=== PATIENT | male | born 1960 | race Hispanic/Latino ===

== ENCOUNTER → 2017-10-22 | Outpatient (CLI) | payer OTHER ==
[~2017-10-22] MED LIST: ASPIRIN EC81 MG PO; BUPROPION XL300 MG PO; BUSPIRONE HCL30 MG PO; CYCLOBENZAPRINE10 MG PO; FENOFIBRATE145 MG PO; GABAPENTIN300 MG PO; LIPITOR10 MG PO; MELOXICAM7.5 MG PO; PERCOCET 7.5-31 EACH PO; TEMAZEPAM15 MG PO
--- NOTE | 2017-10-22 12:48 | Diagnostic Imaging Report ---
History: Headaches Comparison studies: None Technique: Sagittal T2; axial DWI, FLAIR, MPGR, T1, Coronal FLAIR. Intravenous contrast: None Findings: Scalp: Normal in signal . No masses . Bone marrow: Normal in signal intensity. Extra-axial: No masses, no fluid collections. Brain sulci: Appropriate for age. Ventricles: Normal in size . No hydrocephalus . Parenchyma: 1.2 cm cystic cavity with surrounding gliosis at the left centrum semiovale and colón radiata, secondary to remote insult. No masses, hemorrhage or acute vascular insults. Suprasellar region: No abnormalities. Craniocervical junction: No abnormalities. Patent foramen magnum. No Chiari one malformation. Vessels: Loss of flow-void at the left ICA petrous and cavernous segments IMPRESSION: 1. No acute abnormalities. 2. 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 Signed by: DR Jc Gautheir M.D. on 10/22/2017 12:45 PM
--- NOTE | 2017-10-23 10:54 | Cardiology Report ---
DATE OF STUDY: October 22, 2017 DOPPLER SCAN OF RIGHT LEG ARTERIES The right leg arteries were interrogated using the duplex scanning method. The waveforms in the right leg were all biphasic or triphasic. No ankle brachial indices were submitted for interpretation. The left leg was not studied. CONCLUSIONS 1. No high-grade stenosis or flow impairment involving the major arteries of the right leg based on waveforms which were all biphasic and triphasic. 2. The left leg was not studied. 3. No ankle brachial indices or segmental pressure measurements submitted for interpretation. Job#: [id number] cc:ALEXSANDRA NAVA MD
== END ==
LOC: CARD 08:42
PROVIDERS: ATTEND Emergency Medicine
DX: I73.9 Peripheral vascular disease, unspecified (principal); R51 Headache; M81.0 Age-related osteoporosis without current pathological fracture
CPT/HCPCS: 70551; 77080; 93926

== ENCOUNTER 2017-12-17 23:14 | Emergency (ER) | payer OTHER ==
[~2017-12-17] VITALS: Ht 170.2 cm; Wt 62.1 kg
--- OUTSIDE RECORDS SUMMARY | 2017-12-17 23:17 | XMS REPORT | Continuity of Care Document ---
Author Author [facility] Interface Address Unknown Phone Unavailable Problems Problem Status Onset Date Classification Date Reported Comments Source DX; M54.16=RADICULOPATHY, LUMBAR REGION Active 04/02/2016 [facility] ACUTE CELLULITIS RT GROIN,FAILED OUT PAT Active 05/27/2015 [facility] RASH Active 05/27/2015 [facility] BACK PAIN Active 01/02/2014 [facility] Hepatitis C infection Resolved Problem 04/12/2016 [facility] Lung cancer Resolved Problem 04/12/2016 [facility] Peripheral neuropathy Resolved Problem 04/12/2016 [facility] Prostate cancer Resolved Problem 04/12/2016 [facility] XRAY Active [facility] CELLULITIS OF GROIN Active [facility] Medications Medication Details Route Status Patient Instructions Ordering Provider Order Date Source Acetaminophen 300 MG / Codeine Phosphate 30 MG Oral Tablet [Tylenol with Codeine #3] 1 tab, PO, Q6H, X 14 day, # 30 tab, 0 Refill(s), called to pharmacy Active 05/30/2015 [facility] Fluconazole 150 MG Oral Tablet [Diflucan] 150 mg=1 tab, PO, Daily, # 3 tab, 0 Refill(s), called to pharmacy Active 05/30/2015 [facility] clindamycin 300 mg oral capsule 300 mg=1 cap, PO, Q6H, X 10 day, # 40 cap, 0 Refill(s), called to pharmacy Active 05/30/2015 [facility] Acetaminophen 325 MG / Hydrocodone Bitartrate 5 MG Oral Tablet 1 tab, Route: PO, Drug Form: TAB, Dosing Weight 75.001, kg, Q6H, PRN Pain Score 7-10, Start date: 05/29/15 20:57:00 CDT, Duration: 30 day, Stop date: 06/28/15 20:56:00 CDTNotes: (Same as: [place] 325/5) Do not exceed 4gm/day of acetaminophen. No Longer Active 05/30/2015 [facility] Nystatin 100 UNT/MG Topical Powder 1 appl, Route: TOP, BID, Drug form: PWDR, Start date: 05/29/15 17:00:00 CDT, Duration: 30 day, Stop date: 06/28/15 9:00:00 CDTNotes: (Same as:Mycostatin, Nilstat) For external use only. No Longer Active 05/29/2015 [facility] gabapentin 800 MG Oral Tablet 800 mg, 2 cap, Route: PO, Drug form: CAP, TID, Dosing Weight 75.001, kg, Start date: 05/27/15 23:01:00 CDT, Duration: 30 day, Stop date: 06/26/15 21:00:00 CDTNotes: (Same as: Neurontin) No Longer Active 05/28/2015 [facility] Fluconazole 200 mg, 100 mL, Route: IVPB, Drug form: INJ, [id number], Dosing Weight 75.001, kg, Start date: 05/27/15 21:00:00 CDT, Duration: 30 day, Stop date: 06/25/15 21:00:00 CDTNotes: (Same as: Diflucan) Do not refrigerate No Longer Active 05/28/2015 [facility] Temazepam 30 mg, 2 cap, Route: PO, Drug form: CAP, Bedtime, Dosing Weight 75.001, kg, PRN Sleep, Start date: 05/27/15 18:17:00 CDT, Duration: 30 day, Stop date: 06/26/15 18:16:00 CDTNotes: (Same As: Restoril) No Longer Active 05/27/2015 [facility] Nystatin 190981 UNT/ML / Triamcinolone Acetonide 1 MG/ML Topical Cream 1 appl, TOP, BID, # 30 gm, 0 Refill(s) Active 05/27/2015 [facility] Acetaminophen 325 MG / Hydrocodone Bitartrate 10 MG Oral Tablet 1 tab, PO, Q8H, PRN Pain, # 30 tab, 0 Refill(s) No Longer Active 05/27/2015 [facility] Clindamycin 600 mg, 50 mL, Route: IV, Drug form: INJ, [id number], Dosing Weight 63.636, kg, Start date: 05/27/15 18:00:00 CDT, Duration: 30 day, Stop date: 06/26/15 13:00:00 CDT No Longer Active 05/27/2015 [facility] Aspirin 81 MG Enteric Coated Tablet 81 mg=1 tab, PO, Daily, # 90 tab, 3 Refill(s) Active 05/27/2015 [facility] cyclobenzaprine 10 mg oral tablet 10 mg=1 tab, PO, TID, PRN for spasms, # 30 tab, 0 Refill(s) Active 05/27/2015 [facility] atorvastatin 80 mg oral tablet 80 mg=1 tab, PO, Bedtime, # 30 tab, 0 Refill(s) Active 05/27/2015 [facility] meloxicam 15 mg oral tablet 15 mg=1 tab, PO, Daily, # 30 tab, 1 Refill(s) Active 05/27/2015 [facility] temazepam 30 mg oral capsule 30 mg=1 cap, PO, Bedtime, PRN Sleep, # 14 cap, 0 Refill(s) Active 05/27/2015 [facility] buPROPion 300 mg/24 hours oral extended release tablet 300 mg=1 tab, PO, Daily, # 30 tab, 0 Refill(s) Active 05/27/2015 [facility] Fenofibrate 130 MG Oral Capsule 130 mg=1 cap, PO, Daily, # 30 cap, 0 Refill(s) Active 05/27/2015 [facility] gabapentin 800 MG Oral Tablet 800 mg=1 tab, PO, TID, # 90 tab, 0 Refill(s) Active 05/27/2015 [facility] busPIRone 30 mg oral tablet 30 mg=1 tab, PO, BID, # 60 tab, 0 Refill(s) No Longer Active 05/27/2015 [facility] Sodium Chloride 0.154 MEQ/ML Injectable Solution 1,000 mL, Rate: 75 ml/hr, Infuse over: 13.3 hr, Route: IV, Dosing Weight 75.001 kg, Total Volume: 1,000, Start date: 05/27/15 17:00:00 CDT, Duration: 30 day, Stop date: 06/26/15 16:59:00 CDT No Longer Active 05/27/2015 [facility] Docusate 100 mg, 1 cap, Route: PO, Drug form: CAP, BID, Dosing Weight 75.001, kg, PRN Constipation, Start date: 05/27/15 17:00:00 CDT, Duration: 30 day, Stop date: 06/26/15 16:59:00 CDTNotes: (Same as: Colace) (Do Not Crush) No Longer Active 05/27/2015 [facility] Morphine 4 mg, 2 mL, Route: IVP, Drug form: INJ, Q4H, Dosing Weight 63.636, kg, PRN Pain Score 7-10, Start date: 05/27/15 17:00:00 CDT, Duration: 30 day, Stop date: 06/26/15 16:59:00 CDTNotes: (Same as:MORPhine Sulfate) No Longer Active 05/27/2015 [facility] Ondansetron 4 mg, 2 mL, Route: IVP, Drug form: INJ, Q6H, Dosing Weight 75.001, kg, PRN Nausea & Vomiting, Start date: 05/27/15 17:00:00 CDT, Duration: 30 day, Stop date: 06/26/15 16:59:00 CDTNotes: (Same as: Zofran) MEDICATION WASTE Product Size: 4 mg Product Wasted: ___ mg No Longer Active 05/27/2015 [facility] Acetaminophen 650 mg, 2 tab, Route: PO, Drug form: TAB, Q4H, Dosing Weight 75.001, kg, PRN Pain 1-3/Temp > 100.4 F, Start date: 05/27/15 17:00:00 CDT, Duration: 30 day, Stop date: 06/26/15 16:59:00 CDTNotes: Do not exceed 4 gm/day. (Same as: Tylenol) No Longer Active 05/27/2015 [facility] Morphine 4 mg, 2 mL, Route: IVP, Drug form: INJ, ONCE, Dosing Weight 63.636, kg, Priority: STAT, Start date: 05/27/15 12:54:00 CDT, Stop date: 05/27/15 12:54:00 CDTNotes: (Same as:MORPhine Sulfate) Inactive 05/27/2015 [facility] Clindamycin 600 mg, 50 mL, Route: IVPB, Drug form: INJ, ONCE, Dosing Weight 63.636, kg, Priority: STAT, Start date: 05/27/15 12:43:00 CDT, Stop date: 05/27/15 12:43:00 CDT Inactive 05/27/2015 [facility] Dilaudid 0.5 mg, 0.5 mL, Route: IVP, Drug form: INJ, ONCE, Dosing Weight 63.636, kg, Priority: STAT, Start date: 05/27/15 11:55:00 CDT, Stop date: 05/27/15 11:55:00 CDT Inactive 05/27/2015 [facility] Zofran 4 mg, 2 mL, Route: IVP, Drug form: INJ, ONCE, Dosing Weight 63.636, kg, Priority: STAT, Start date: 05/27/15 9:38:00 CDT, Stop date: 05/27/15 9:38:00 CDTNotes: (Same as: Zofran) MEDICATION WASTE Product Size: 4 mg Product Wasted: ___ mg Inactive 05/27/2015 [facility] Morphine 4 mg, 2 mL, Route: IVP, Drug form: INJ, ONCE, Dosing Weight 63.636, kg, Priority: STAT, Start date: 05/27/15 9:38:00 CDT, Stop date: 05/27/15 9:38:00 CDTNotes: (Same as:MORPhine Sulfate) Inactive 05/27/2015 [facility] Saline Flush 0.9% 10 mL, Route: IVP, Drug Form: INJ, Dosing Weight 63.636, kg, PRN, PRN Line Flush, Start date: 05/27/15 9:38:00 CDT, Duration: 30 day, Stop date: 06/26/15 9:37:00 CDTNotes: Same as: BD Posiflush Sterile No Longer Active 05/27/2015 [facility] Sodium Chloride 0.154 MEQ/ML Injectable Solution 1,000 mL, 1000 ml/hr, Infuse Over: 1 hr, Route: IV, 1,000, Drug form: INJ, ONCE, Priority: STAT, Dosing Weight 63.636 kg, Start date: 05/27/15 9:38:00 CDT, Duration: 1 doses or times, Stop date: 05/27/15 9:38:00 CDT Inactive 05/27/2015 [facility] Allergies, Adverse Reactions, Alerts Substance Category Reaction Severity Reaction type Status Date Reported Comments Source Immunizations Immunization Date Given Site Status Last Updated Comments Source Results Order Name Results Value Reference Range Date Interpretation Comments Source Spine lumbar wo contrast MRI Spine lumbar wo contrast MRI Study: Spine lumbar wo contrast MRI Clinical Indication: Chronic lower back pain now worsening over the past 2 months. Pain is radiating down right side hip and leg. Previous pain management injections ineffective. Comparison: Plain films of the lumbar spine from 02/22/2014 TECHNIQUE: Multiplanar, multisequence magnetic resonance imaging of the lumbar spine was performed without the administration of intravenous gadolinium contrast. FINDINGS: 5 nonrib-bearing lumbar vertebra are present. No acute compression fracture or subluxation is seen. The discs are desiccated throughout the lumbar spine and moderate- severe multilevel disc height loss from T12-L1 through L2-L3 is seen. Mild disc height loss at L3-L4 and L4-L5 is seen. The conus terminates at the thoracolumbar junction. Findings by level: T12-L1: Minimal annular disc bulge is seen. Mild facet arthrosis is noted. There is no spinal canal stenosis or neural foraminal narrowing. L1-L2: Moderate-sized annular disc bulge is present. Mild facet arthrosis and ligamentum flavum hypertrophy is seen. There is moderate spinal canal stenosis with mild bilateral neural foraminal narrowing. L2-L3: Large asymmetric annular disc bulge is seen, eccentric to the left. Mild facet arthrosis and ligamentum flavum hypertrophy is noted. There is moderate- severe spinal canal stenosis with severe left neural foraminal narrowing and impingement upon the exiting left L2 nerve root. Mild right neural foraminal narrowing is present. L3-L4: Small annular disc bulge is seen. Mild facet arthrosis and ligamentum flavum hypertrophy is noted. There is moderate-severe spinal canal stenosis with moderate-severe bilateral neural foraminal narrowing. L4-L5: Moderate-sized asymmetric annular disc bulge is seen, eccentric to the right. Mild to moderate facet arthrosis is present. There is severe right neural foraminal narrowing with impingement upon the exiting right L4 nerve root. Mild spinal canal stenosis is seen. L5-S1: The disc is normal. There is no central or foraminal stenosis. The facet joints are unremarkable. The cauda equina and nerve roots are unremarkable. IMPRESSION: 1. Advanced degenerative changes throughout the lumbar spine, most notable at L2- L3 with moderate-severe spinal canal stenosis and severe left neural foraminal narrowing with impingement upon the exiting left L2 nerve root. 2. L1-L2 moderate spinal canal stenosis with mild bilateral neural foraminal narrowing. 3. L3-L4 moderate-severe spinal canal stenosis with moderate-severe bilateral neural foraminal narrowing. 4. L4-L5 mild spinal canal stenosis with severe right neural foraminal narrowing and impingement upon the exiting right L4 nerve root. SL: [id number] 04/09/2016 - - Read by: Gurpreet Ayala MD Dictated Date/time: 04/09/16 11:55 Electronically Signed by: Gurpreet Ayala MD 04/09/16 12:00 FINAL REPORT [facility] Prealbumin 14.2 mg/dL 18.0 - 45.0 05/30/2015 [facility] CHEM PANEL Calcium Lvl 8.9 mg/dL 8.5 - 10.5 05/29/2015 [facility] CHEM PANEL CO2 26 meq/L 24 - 32 05/29/2015 [facility] CHEM PANEL Potassium Lvl 4.0 meq/L 3.5 - 5.1 05/29/2015 [facility] CHEM PANEL Chloride Lvl 106 meq/L 95 - 109 05/29/2015 [facility] CHEM PANEL Sodium Lvl 139 meq/L 135 - 145 05/29/2015 [facility] CHEM PANEL Creatinine Lvl 1.20 mg/dL 0.50 - 1.40 05/29/2015 [facility] CHEM PANEL BUN 16 mg/dL 7 - 22 05/29/2015 [facility] CHEM PANEL eGFR 69 mL/min/1.73m2 05/29/2015 Result Comment: The eGFR is calculated using the CKD-EPI formula. In most young, healthy individuals the eGFR will be >90 mL/min/1.73m2. The eGFR declines with age. An eGFR of 60-89 may be normal in some populations, particularly the elderly, for whom the CKD-EPI formula has not been extensively validated. Use of the eGFR is not recommended in the following populations: Individuals with unstable creatinine concentrations, including patients and those with serious co-morbid conditions. Patients with extremes in muscle mass or diet. The data above are obtained from the National Kidney Disease Education Program (NKDEP) which additionally recommends that when the eGFR is used in patients with extremes of body mass index for purposes of drug dosing, the eGFR should be multiplied by the estimated BMI. [facility] CHEM PANEL Glucose Lvl 110 mg/dL 70 - 99 05/29/2015 [facility] CHEM PANEL AGAP 11.0 meq/L 10.0 - 20.0 05/29/2015 [facility] HEMATOLOGY Eosinophils # 0.2 K/CMM 0.0 - 0.5 05/29/2015 [facility] HEMATOLOGY Basophils # 0.1 K/CMM 0.0 - 0.2 05/29/2015 [facility] HEMATOLOGY Segs 52.1 % 45.0 - 75.0 05/29/2015 [facility] HEMATOLOGY Lymphocytes 29.9 % 20.0 - 40.0 05/29/2015 [facility] HEMATOLOGY Monocytes 13.6 % 2.0 - 12.0 05/29/2015 [facility] HEMATOLOGY Eosinophils 3.2 % 0.0 - 4.0 05/29/2015 [facility] HEMATOLOGY Basophils 1.2 % 0.0 - 1.0 05/29/2015 [facility] HEMATOLOGY Segs-Bands # 2.7 K/CMM 1.5 - 8.1 05/29/2015 [facility] Lymphocytes # 1.6 K/CMM 1.0 - 5.5 05/29/2015 [facility] Monocytes # 0.7 K/CMM 0.0 - 0.8 05/29/2015 [facility] Platelet 216 K/CMM 133 - 450 05/29/2015 [facility] MPV 9.0 fL 7.4 - 10.4 05/29/2015 [facility] WBC 5.2 K/CMM 3.7 - 10.4 05/29/2015 [facility] RBC 3.56 M/CMM 4.70 - 6.10 05/29/2015 [facility] Hgb 10.8 g/dL 14.0 - 18.0 05/29/2015 [facility] Hct 32.2 % 42.0 - 54.0 05/29/2015 [facility] MCV 90.3 fL 80.0 - 94.0 05/29/2015 [facility] MCH 30.3 pg 27.0 - 31.0 05/29/2015 [facility] MCHC 33.6 g/dL 32.0 - 36.0 05/29/2015 [facility] RDW 12.6 % 11.5 - 14.5 05/29/2015 [facility] SPECIAL CHEMISTRY PSA < 0.01 ng/mL 0.00 - 4.00 05/29/2015 [facility] URINE AND STOOL UA Color Ltyellow 05/28/2015 [facility] URINE AND STOOL UA Urobilinogen <=1.0 mg/dL 0.1 - 1.0 05/28/2015 [facility] URINE AND STOOL UA RBC 1 /HPF 0 - 2 05/28/2015 [facility] URINE AND STOOL UA WBC 1 /HPF 0 - 5 05/28/2015 [facility] URINE AND STOOL UA Sq Epi None Seen 05/28/2015 [facility] URINE AND STOOL UA Mucus Few /LPF None Seen /LPF 05/28/2015 [facility] URINE AND STOOL UA Ketones Negative mg/dL Negative mg/dL 05/28/2015 [facility] URINE AND STOOL UA Blood Negative (05/28/15 10:50 AM) Negative 05/28/2015 [facility] URINE AND STOOL UA Bili Negative *NA* (05/28/15 10:50 AM) Negative 05/28/2015 [facility] URINE AND STOOL UA Leuk Est Negative (05/28/15 10:50 AM) Negative 05/28/2015 [facility] URINE AND STOOL UA Nitrite Negative (05/28/15 10:50 AM) Negative 05/28/2015 [facility] URINE AND STOOL UA Spec Grav 1.015 <=1.030 05/28/2015 [facility] URINE AND STOOL UA Turbidity Clear (05/28/15 10:50 AM) Clear 05/28/2015 [facility] URINE AND STOOL UA Protein Negative mg/dL Negative mg/dL 05/28/2015 [facility] URINE AND STOOL UA pH 6.0 5.0 - 8.0 05/28/2015 [facility] URINE AND STOOL UA Glucose Negative mg/dL Negative mg/dL 05/28/2015 [facility] CHEM PANEL eGFR 55 mL/min/1.73m2 05/28/2015 Result Comment: The eGFR is calculated using the CKD-EPI formula. In most young, healthy individuals the eGFR will be >90 mL/min/1.73m2. The eGFR declines with age. An eGFR of 60-89 may be normal in some populations, particularly the elderly, for whom the CKD-EPI formula has not been extensively validated. Use of the eGFR is not recommended in the following populations: Individuals with unstable creatinine concentrations, including patients and those with serious co-morbid conditions. Patients with extremes in muscle mass or diet. The data above are obtained from the National Kidney Disease Education Program (NKDEP) which additionally recommends that when the eGFR is used in patients with extremes of body mass index for purposes of drug dosing, the eGFR should be multiplied by the estimated BMI. [facility] CHEM PANEL CO2 26 meq/L 24 - 32 05/28/2015 [facility] CHEM PANEL Chloride Lvl 107 meq/L 95 - 109 05/28/2015 [facility] CHEM PANEL Calcium Lvl 8.1 mg/dL 8.5 - 10.5 05/28/2015 [facility] CHEM PANEL AGAP 9.8 meq/L 10.0 - 20.0 05/28/2015 [facility] CHEM PANEL Sodium Lvl 139 meq/L 135 - 145 05/28/2015 [facility] CHEM PANEL Potassium Lvl 3.8 meq/L 3.5 - 5.1 05/28/2015 [facility] CHEM PANEL Glucose Lvl 92 mg/dL 70 - 99 05/28/2015 [facility] CHEM PANEL Creatinine Lvl 1.45 mg/dL 0.50 - 1.40 05/28/2015 [facility] CHEM PANEL BUN 22 mg/dL 7 - 22 05/28/2015 [facility] HEMATOLOGY Lymphocytes # 1.6 K/CMM 1.0 - 5.5 05/28/2015 [facility] HEMATOLOGY Basophils # 0.1 K/CMM 0.0 - 0.2 05/28/2015 [facility] HEMATOLOGY Monocytes # 0.8 K/CMM 0.0 - 0.8 05/28/2015 [facility] HEMATOLOGY Eosinophils # 0.1 K/CMM 0.0 - 0.5 05/28/2015 [facility] HEMATOLOGY Segs 54.3 % 45.0 - 75.0 05/28/2015 [facility] HEMATOLOGY Lymphocytes 28.0 % 20.0 - 40.0 05/28/2015 [facility] HEMATOLOGY Segs-Bands # 3.2 K/CMM 1.5 - 8.1 05/28/2015 [facility] HEMATOLOGY Eosinophils 2.4 % 0.0 - 4.0 05/28/2015 [facility] HEMATOLOGY Basophils 1.1 % 0.0 - 1.0 05/28/2015 [facility] HEMATOLOGY Monocytes 14.2 % 2.0 - 12.0 05/28/2015 [facility] HEMATOLOGY WBC 5.9 K/CMM 3.7 - 10.4 05/28/2015 [facility] HEMATOLOGY RBC 3.60 M/CMM 4.70 - 6.10 05/28/2015 [facility] HEMATOLOGY MCH 30.1 pg 27.0 - 31.0 05/28/2015 [facility] HEMATOLOGY Hgb 10.9 g/dL 14.0 - 18.0 05/28/2015 [facility] HEMATOLOGY Hct 32.7 % 42.0 - 54.0 05/28/2015 [facility] HEMATOLOGY MCV 90.8 fL 80.0 - 94.0 05/28/2015 [facility] HEMATOLOGY MCHC 33.2 g/dL 32.0 - 36.0 05/28/2015 [facility] HEMATOLOGY RDW 12.8 % 11.5 - 14.5 05/28/2015 [facility] MPV 9.0 fL 7.4 - 10.4 05/28/2015 [facility] HEMATOLOGY Platelet 209 K/CMM 133 - 450 05/28/2015 [facility] CHEM PANEL eGFR 37 mL/min/1.73m2 05/27/2015 Result Comment: The eGFR is calculated using the CKD-EPI formula. In most young, healthy individuals the eGFR will be >90 mL/min/1.73m2. The eGFR declines with age. An eGFR of 60-89 may be normal in some populations, particularly the elderly, for whom the CKD-EPI formula has not been extensively validated. Use of the eGFR is not recommended in the following populations: Individuals with unstable creatinine concentrations, including patients and those with serious co-morbid conditions. Patients with extremes in muscle mass or diet. The data above are obtained from the National Kidney Disease Education Program (NKDEP) which additionally recommends that when the eGFR is used in patients with extremes of body mass index for purposes of drug dosing, the eGFR should be multiplied by the estimated BMI. [facility] CHEM PANEL AST 10 unit/L 0 - 37 05/27/2015 [facility] CHEM PANEL Alk Phos 46 unit/L 39 - 136 05/27/2015 [facility] CHEM PANEL Bili Total 0.3 mg/dL 0.2 - 1.3 05/27/2015 [facility] CHEM PANEL Creatinine Lvl 2.00 mg/dL 0.50 - 1.40 05/27/2015 [facility] CHEM PANEL BUN 27 mg/dL 7 - 22 05/27/2015 [facility] CHEM PANEL Glucose Lvl 117 mg/dL 70 - 99 05/27/2015 [facility] CHEM PANEL CO2 23 meq/L 24 - 32 05/27/2015 [facility] CHEM PANEL Chloride Lvl 104 meq/L 95 - 109 05/27/2015 [facility] CHEM PANEL Potassium Lvl 3.6 meq/L 3.5 - 5.1 05/27/2015 [facility] CHEM PANEL Sodium Lvl 137 meq/L 135 - 145 05/27/2015 [facility] CHEM PANEL Albumin Lvl 3.8 g/dL 3.5 - 5.0 05/27/2015 [facility] CHEM PANEL ALT 17 unit/L 0 - 65 05/27/2015 [facility] CHEM PANEL Total Protein 7.4 g/dL 6.4 - 8.4 05/27/2015 [facility] CHEM PANEL Calcium Lvl 9.3 mg/dL 8.5 - 10.5 05/27/2015 [facility] CHEM PANEL AGAP 13.6 meq/L 10.0 - 20.0 05/27/2015 [facility] CHEM PANEL B/C Ratio 14 6 - 25 05/27/2015 [facility] CHEM PANEL Globulin 3.6 g/dL 2.0 - 4.0 05/27/2015 [facility] CHEM PANEL A/G Ratio 1.1 0.7 - 1.6 05/27/2015 [facility] HEMATOLOGY Lymphocytes 11.0 % 20.0 - 40.0 05/27/2015 [facility] HEMATOLOGY Monocytes 11.6 % 2.0 - 12.0 05/27/2015 [facility] HEMATOLOGY Segs 75.7 % 45.0 - 75.0 05/27/2015 [facility] HEMATOLOGY Lymphocytes # 0.9 K/CMM 1.0 - 5.5 05/27/2015 [facility] HEMATOLOGY Monocytes # 1.0 K/CMM 0.0 - 0.8 05/27/2015 [facility] HEMATOLOGY Segs-Bands # 6.5 K/CMM 1.5 - 8.1 05/27/2015 [facility] HEMATOLOGY Basophils 0.9 % 0.0 - 1.0 05/27/2015 [facility] HEMATOLOGY Eosinophils 0.8 % 0.0 - 4.0 05/27/2015 [facility] HEMATOLOGY Eosinophils # 0.1 K/CMM 0.0 - 0.5 05/27/2015 [facility] HEMATOLOGY Basophils # 0.1 K/CMM 0.0 - 0.2 05/27/2015 [facility] HEMATOLOGY MCH 30.4 pg 27.0 - 31.0 05/27/2015 [facility] HEMATOLOGY MCV 91.9 fL 80.0 - 94.0 05/27/2015 [facility] HEMATOLOGY Hct 37.0 % 42.0 - 54.0 05/27/2015 [facility] HEMATOLOGY Hgb 12.2 g/dL 14.0 - 18.0 05/27/2015 [facility] HEMATOLOGY RBC 4.02 M/CMM 4.70 - 6.10 05/27/2015 [facility] WBC 8.5 K/CMM 3.7 - 10.4 05/27/2015 [facility] Platelet 211 K/CMM 133 - 450 05/27/2015 [facility] MPV 9.0 fL 7.4 - 10.4 05/27/2015 [facility] MCHC 33.1 g/dL 32.0 - 36.0 05/27/2015 [facility] RDW 12.9 % 11.5 - 14.5 05/27/2015 [facility] Abdomen/Pelvis wo IV contrast CT Abdomen/Pelvis wo IV contrast CT Study: Abdomen/Pelvis wo IV contrast CT 05/27/2015 11:14 AM CDT Patient Name: TRACEY EAST MR: [id number] : 1960; Age: 54 years y/o Male Ordering Physician: Tenzin Meyer DO Clinical Indication: Acute generalized abdominal pain. cellulitis of the groin. r/o merlin gangrene Comparison: None TECHNIQUE: Contiguous transaxial CT images were obtained through the abdomen and pelvis. Sagittal and coronal reformatted images were prepared. IV CONTRAST: None. GI CONTRAST: Yes. CT ABDOMEN WITHOUT CONTRAST: SOLID ORGANS: 1. Normal-sized nonenhanced kidneys associated with multiple subcentimeter nonobstructing bilateral nephrolithiasis. 2. Normal nonenhanced liver, gallbladder, adrenal glands, pancreas, and spleen. BOWEL: Normal nonobstructed bowel gas pattern. Normal appendix. Normal stomach. PERITONEUM: No free intraperitoneal fluid or air. RETROPERITONEUM: No lymphadenopathy or mass. ABDOMINAL AORTA: Normal caliber abdominal aorta. LUNG BASES: Mild scarring in the right lung base. Normal size heart. OSSEOUS STRUCTURES: No fracture, dislocation, or suspicious focal osseous lesion. CT PELVIS WITHOUT CONTRAST: URINARY BLADDER: Normal nonopacified urinary bladder. Small vesicoureteric remnant along the dome. SOLID ORGANS: Normal prostate and seminal vesicles. LYMPH NODES: Several mildly enlarged lymph nodes are seen in the inguinal regions, greater on the right. Mild skin thickening associated with induration and stranding of the fat is seen in the right groin consistent with a nonspecific cellulitis. No evidence of a fluid attenuation peripherally enhancing abscess or soft tissue gas. FREE FLUID: No free pelvic fluid. OSSEOUS STRUCTURES: No fracture, dislocation, or suspicious focal osseous lesion. IMPRESSION: 1. Mild inflammatory change associated with reactive lymphadenopathy in the right groin suspicious for cellulitis. No fluid collection is seen to suggest an abscess. No soft tissue gas is seen to suggest necrosis. Merlin's gangrene questioned in the history has to be evaluated on a clinical basis. 2. Nonobstructing bilateral nephrolithiasis. SL: [id number] 05/27/2015 - - Read by: Daniel Garrison MD Dictated Date/time: 05/27/15 11:36 Electronically Signed by: Daniel Garrison MD 05/27/15 11:46 FINAL REPORT [facility] Spine lumbar series DX Spine lumbar series DX Examination: Lumbar spine, 5 views History: 724.4 Thoracic or Lumbosacral Neuritis or Radiculitis, Unspecified Comparison: None. Findings: Multiple views of the lumbar spine show 5 nonrib bearing lumbar vertebra. Minimal dextro scoliotic convex curvature of the lumbar spine centered at L3-L4 is seen. No acute compression fracture is seen. Moderate to severe multilevel degenerative disc disease from L1-L2 through L3-L4 is seen with moderate to severe disc height loss, vacuum disc phenomena, and marginal osteophytes. No pars interarticularis defects are noted. Lumbarization of S1 is seen. IMPRESSION: Moderate to severe degenerative disc disease of the lumbar spine. SL: 16 02/22/2014 - - Read by: Gurpreet Ayala MD Dictated Date/time: 02/22/14 13:05 Electronically Signed by: Gurpreet Ayala MD 02/22/14 13:08 FINAL REPORT [facility] Vital Signs Vital Sign Value Date Comments Source Systolic (mm Hg) 112 05/30/2015 [facility] Diastolic (mm Hg) 72 05/30/2015 [facility] Respitory Rate 20 05/30/2015 [facility] Heart Rate 90 05/30/2015 [facility] Temperature Oral (F) 98.2 F 05/30/2015 [facility] Respitory Rate 20 05/30/2015 [facility] Temperature Oral (F) 97.8 F 05/30/2015 [facility] Heart Rate 82 05/30/2015 [facility] Systolic (mm Hg) 131 05/30/2015 [facility] Diastolic (mm Hg) 81 05/30/2015 [facility] Temperature Oral (F) 98.6 F 05/30/2015 [facility] Respitory Rate 18 05/30/2015 [facility] Heart Rate 90 05/30/2015 [facility] Systolic (mm Hg) 118 05/30/2015 [facility] Diastolic (mm Hg) 75 05/30/2015 [facility] Height 170.18 cm 05/27/2015 [facility] BMI Calculated 25.9 05/27/2015 [facility] Weight 75.001 05/27/2015 [facility] Height 170.18 cm 05/27/2015 [facility] Weight 75.1 05/27/2015 [facility] BMI Calculated 25.93 05/27/2015 [facility] Weight 63.636 05/27/2015 [facility] BMI Calculated 21.97 05/27/2015 [facility] Height 170.18 cm 05/27/2015 [facility] Encounters Location Location Details Encounter Type Encounter Number Reason For Visit Attending Provider ADM Date DC Date Status Source [facility] Outpatient [id number] Harish Alloju 11/23/2013 11/24/2013 [facility] Outpatient [id number] Base Hamid 02/22/2014 02/23/2014 [facility] Inpatient [id number] Harish Alloju 05/27/2015 05/30/2015 [facility] Outpatient [id number] Sid Miller 04/09/2016 04/10/2016 [facility] Outpatient [id number] KORIN STEINBERGH 06/17/2016 Active [facility] Procedures Procedure Code Date Perfomer Comments Source Therapeutic arthroscopy on cartilage of knee [id number] [facility]
--- OUTSIDE RECORDS SUMMARY | 2017-12-17 23:18 | XMS REPORT | Summary of Care ---
Author Organization Unknown Address Unknown Phone Unavailable Encounter HQ Hubertr_nereyda(ANGELO) [id number] Date(s): 02/22/14 - 02/22/14 [facility] [address] Discharge Disposition: Home Physician Attending: Mark Street MD Reason for Visit XRAY Problem List No data available for this section Allergies, Adverse Reactions, Alerts No data available for this section Medications No data available for this section Medications Administered During Your Visit No data available for this section Immunizations No data available for this section
--- OUTSIDE RECORDS SUMMARY | 2017-12-17 23:18 | XMS REPORT ---
Author [facility] Address Unknown Phone Unavailable Care Team Providers Care Leak Hunter Name Role Phone ALEXSANDRA NAVA Unavailable Unavailable Problems This patient has no known problems. Allergies, Adverse Reactions, Alerts This patient has no known allergies or adverse reactions. Medications This patient has no known medications. Results Test Description Test Time Test Comments Text Results Atomic Results Result Comments BONE DXA DUAL ENERGY 2017-11-04 08:39:00 [place] [address] Patient Name: TRACEY EAST MR #: [id number] : 1960 Age/Sex: 56/M Req #: [id number] [facility] Physician: Ordered by: ALEXSANDRA NAVA MD Report #: [id number] Location: CARD Room/Bed: Procedure: [id number] DX/BONE DXA DUAL ENERGY Exam Date: Exam Time: REPORT STATUS: Signed PROCEDURE: BONE DXA DUAL ENERGY COMPARISON: None. INDICATIONS: Osteoporosis FINDINGS: Evaluation of the left hip and lumbar spine was performed utilizing DEXA Hologic bone densitometer. The study is technically adequate. The patient does not have any known previous non-traumatic fractures or other risk factors. Left hip total bone mineral density: 0.911 gm/cm2, T-score is -1.1, Z-score is -0.9. Lumbar spine total bone mineral density: 1.207 gm/cm2, T-score is 1.1, Z- score is 1.5. Impression: 1. Decreased bone mineral density of the left hip classified as osteopenia, fracture risk is increased. 2. Normal bone mineral density of the lumbar spine, fracture risk is not increased. The patient's fracture risk is compared to an age-matched control. Medi thiago evaluation for secondary causes of low bone mineral density may be appropriate. Correlate clinically for the necessity and timing of the next bone mineral density study. National Osteoporosis Foundation recommendations: Initial therapy to reduce fracture risk in postmenopausal women with -BMD t-scores below -2.0 by central DXA with no risk factors -BMD t-scores below -1.5 by central CXA with one or more risk factors (first deg relative with hip fracture, prior personal fracture, low body weight, smoking) -A prior vertebral or hip fracture AACLidia n(Clinical Endocrinology) recommends treating the following: Postmenopausal women who have osteoporosis as diagnosed by fragility fractures or t-score -2.5 or below. Postmenopausal women who have risk factors (including hx of hip fracture, low body weight, smoking, risk of falling, high bone turnover, advancing age) and borderline low BMD T-scores of -1.5 or below Ad equate intake of calcium (at least 1200mg/day) and vitamin D (400-800IU/day). Regular weight bearing and muscle-strengthening exercises Avoid smoking and excessive alcohol Garfield Parikh D.O. Dictated by: Garfield Parikh D.O. on 11/04/2017 at 8:39 Electronically approved by: Garfield Parikh D.O. on 11/04/2017 at 8:39 Dictated By: GARFIELD PARIKH DO 8 Transcribed By: STAR on 11/04/17838 COPY TO: ALEXSANDRA NAVA MD ARTERIAL DUPLEX LWR U/L 2017-10-23 10:25:00 [place] [address] Patient Name : TRACEY EAST MR #: [id number] : 1960 Age/Sex: 56/M Adm Physician : ALEXSANDRA NAVA MD Admit Date : Location : CARD Room/Bed : REPORT: Cardiology Report DATE OF STUDY: October 22, 2017 DOPPLER SCAN OF RIGHT LEG ARTERIES The right leg arteries were interrogated using the duplex scanning method. The waveforms in the right leg were all biphasic or triphasic. No ankle brachial indices were submitted for interpretation. The left leg was not studied. CONCLUSIONS 1. No high-grade stenosis or flow impairment involving the major arteries of the right leg based on waveforms which were all biphasic and triphasic. 2. The left leg was not studied. 3. No ankle brachial indices or segmental pressure measurements submitted for interpretation. Job#: [id number] cc: ALEXSANDRA NAVA MD Signature Date Dictated By: SAULO FARIAS MD Transcribed By: EDS on 10/23/17 <Electronically signed by SAULO FARIAS MD><<Signature on File>>10/26/17920 COPY TO: MRI BRAIN WO 2017-10-22 12:31:00 [place] [address] Patient Name: TRACEY EAST MR #: [id number] : 1960 Age/Sex: 56/M Req #: [id number] Adm Physician: Ordered by: ALEXSANDRA NAVA MD Report #: [id number] Location: CARD Room/Bed: Procedure: [id number] MRI/MRI BRAIN WO Exam Date: Exam Time: REPORT STATUS: Signed History: Headaches Comparison studies: None Technique: Sagittal T2; axial DWI, FLAIR, MPGR, T1, Coronal FLAIR. Intravenous contrast: None Findings: Scalp: Normal in signal . No masses . Bone marrow: Normal in signal intensity. Extra-axial: No masses, no fluid collections. Brain sulci: Appropriate for age. Ventricles: Normal in size . No hydrocephalus . Parenchyma: 1.2 cm cystic cavity with surrounding gliosis at the left centrum semiovale and colón radiata, secondary to remote insult. No masses, hemorrhage or acute vascular insults. Suprasellar region: No abnormalities. Craniocervical junction: No abnormalities. Patent foramen magnum. No Chiari one malformation. Vessels: Loss of flow-void at the left ICA petrous and cavernous segments IMPRESSION: 1. No acute abnormalities. 2. 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 Signed by: DR Jc Gauthier M.D. on 10/22/2017 12:45 PM Dictated By: JC CHANDRA MD 1245 Transcribed By: APOLLO on 10/22/17 1245 COPY TO: ALEXSANDRA NAVA MD
--- OUTSIDE RECORDS SUMMARY | 2017-12-17 23:18 | XMS REPORT | Summary of Care ---
Author Author [facility] Organization [facility] Address Unknown Phone Unavailable Encounter MELLISSA Zelaya(ANGELO) [id number] Date(s): 04/09/16 - 04/09/16 [facility] [address] [place] [address]- [phone] Discharge Disposition: Home or Self Care Attending Physician: Sid Miller MD Admitting Physician: Sid Miller MD Referring Physician: Sid Miller MD Vital Signs No data available for this section Problem List Condition Effective Dates Status Health Status Informant Hepatitis C Resolved infection(Confirmed) Lung Resolved cancer(Confirmed) Peripheral Resolved neuropathy(Confirmed ) Prostate Resolved cancer(Confirmed) Allergies, Adverse Reactions, Alerts Substance Reaction Severity Status NKDA Active Medications No data available for this section Results No data available for this section Immunizations No data available for this section Procedures Procedure Date Related Diagnosis Body Site Therapeutic arthroscopy on cartilage of knee Social History Social History Type Response Alcohol Current, Type Liquor. Frequency: 1-2 times per month. Alcohol use interferes with work or home: No. Drinks more than intended: No. Others hurt by drinking: No. Ready to change: No. Household alcohol concerns: No. Smoking Status Never smoker; Exposure to Tobacco Smoke None; Cigarette Smoking Last 365 Days No; Reg Smoking Cessation Counseling No Assessment and Plan No data available for this section
--- OUTSIDE RECORDS SUMMARY | 2017-12-17 23:18 | XMS REPORT | Summary of Care ---
Author Author [facility] Organization [facility] Address Unknown Phone Unavailable Encounter HQ Nathalie(ANGELO) [id number] Date(s): 05/27/15 - 05/30/15 [facility] [id number] [place] [address]- Discharge Disposition: Home Attending Physician: Harish Pierce MD Admitting Physician: Harish Pierce MD Vital Signs 1 2 3 Most recent to oldest [Reference Range]: 170.18 cm (05/27/15 4:44 PM) 170.18 cm (05/27/15 4:35 PM) 170.18 cm (05/27/15 9:00 AM) Height 98.2 DegF (05/30/15 12:02 PM) 97.8 DegF (05/30/15 8:36 AM) 98.6 DegF (05/30/15 4:00 AM) Temperature Oral [96.4-99.1 DegF] 112/72 mmHg (05/30/15 12:02 PM) 131/81 mmHg (05/30/15 8:36 AM) 118/75 mmHg (05/30/15 4:00 AM) Blood Pressure [90-140/60-90 mmHg] 20 BRMIN (05/30/15 12:02 PM) 20 BRMIN (05/30/15 8:36 AM) 18 BRMIN (05/30/15 4:00 AM) Respiratory Rate [14-20 BRMIN] 90 bpm (05/30/15 12:02 PM) 82 bpm (05/30/15 8:36 AM) 90 bpm (05/30/15 4:00 AM) Peripheral Pulse Rate [60-100 bpm] 75.001 kg (05/27/15 4:44 PM) 75.1 kg (05/27/15 4:35 PM) 63.636 kg (05/27/15 9:00 AM) Weight 25.9 m2 (05/27/15 4:44 PM) 25.93 m2 (05/27/15 4:35 PM) 21.97 m2 (05/27/15 9:00 AM) Body Mass Index Problem List Condition Effective Dates Status Health Status Informant Hepatitis C Resolved infection(Confirmed) Lung Resolved cancer(Confirmed) Peripheral Resolved neuropathy(Confirmed ) Prostate Resolved cancer(Confirmed) Allergies, Adverse Reactions, Alerts Substance Reaction Severity Status NKDA Active Medications acetaminophen 650 mg, 2 tab, Route: PO, Drug form: TAB, Q4H, Dosing Weight 75.001, kg, PRN Darrion n 1-3/Temp > 100.4 F, Start date: 05/27/15 17:00:00 CDT, Duration: 30 day, Stop date: 06/26/15 16:59:00 CDT Notes: Do not exceed 4 gm/day. (Same as: Tylenol) Start Date: 05/27/15 Stop Date: 05/30/15 Status: Discontinued acetaminophen-hydrocodone 325 mg-10 mg oral tablet 1 tab, PO, Q8H, PRN Pain, # 30 tab, 0 Refill(s) Start Date: 05/27/15 Stop Date: 05/30/15 Status: Discontinued acetaminophen-hydrocodone 325 mg-5 mg oral tablet 1 tab, Route: PO, Drug Form: TAB, Dosing Weight 75.001, kg, Q6H, PRN Pain Score 7-10, Start date: 05/29/15 20:57:00 CDT, Duration: 30 day, Stop date: 06/28/15 2 0:56:00 CDT Notes: (Same as: [place] 325/5) Do not exceed 4gm/day of acetaminophen. Start Date: 05/29/15 Stop Date: 05/30/15 Status: Discontinued aspirin 81 mg tablet, enteric coated 81 mg=1 tab, PO, Daily, # 90 tab, 3 Refill(s) Start Date: 05/27/15 Status: Ordered atorvastatin 80 mg oral tablet 80 mg=1 tab, PO, Bedtime, # 30 tab, 0 Refill(s) Start Date: 05/27/15 Status: Ordered buPROPion 300 mg/24 hours oral extended release tablet 300 mg=1 tab, PO, Daily, # 30 tab, 0 Refill(s) Start Date: 05/27/15 Status: Ordered busPIRone 30 mg oral tablet 30 mg=1 tab, PO, BID, # 60 tab, 0 Refill(s) Start Date: 05/27/15 Stop Date: 05/30/15 Status: Discontinued clindamycin 600 mg, 50 mL, Route: IV, Drug form: INJ, [id number], Dosing Weight 63.636, kg, Star t date: 05/27/15 18:00:00 CDT, Duration: 30 day, Stop date: 06/26/15 13:00:00 CD T Start Date: 05/27/15 Stop Date: 05/30/15 Status: Discontinued clindamycin 600 mg, 50 mL, Route: IVPB, Drug form: INJ, ONCE, Dosing Weight 63.636, kg, Prio rity: STAT, Start date: 05/27/15 12:43:00 CDT, Stop date: 05/27/15 12:43:00 CDT Start Date: 05/27/15 Stop Date: 05/27/15 Status: Completed clindamycin 300 mg oral capsule 300 mg=1 cap, PO, Q6H, X 10 day, # 40 cap, 0 Refill(s), called to pharmacy Start Date: 05/30/15 Stop Date: 06/09/15 Status: Ordered cyclobenzaprine 10 mg oral tablet 10 mg=1 tab, PO, TID, PRN for spasms, # 30 tab, 0 Refill(s) Start Date: 05/27/15 Stop Date: 06/06/15 Status: Ordered Diflucan 150 mg oral tablet 150 mg=1 tab, PO, Daily, # 3 tab, 0 Refill(s), called to pharmacy Start Date: 05/30/15 Status: Ordered Dilaudid 0.5 mg, 0.5 mL, Route: IVP, Drug form: INJ, ONCE, Dosing Weight 63.636, kg, Prio rity: STAT, Start date: 05/27/15 11:55:00 CDT, Stop date: 05/27/15 11:55:00 CDT Start Date: 05/27/15 Stop Date: 05/27/15 Status: Completed docusate 100 mg, 1 cap, Route: PO, Drug form: CAP, BID, Dosing Weight 75.001, kg, PRN Con stipation, Start date: 05/27/15 17:00:00 CDT, Duration: 30 day, Stop date: 06/25 16:59:00 CDT Notes: (Same as: Colace) (Do Not Crush) Start Date: 05/27/15 Stop Date: 05/30/15 Status: Discontinued fenofibrate 130 mg oral capsule 130 mg=1 cap, PO, Daily, # 30 cap, 0 Refill(s) Start Date: 05/27/15 Status: Ordered fluconazole 200 mg, 100 mL, Route: IVPB, Drug form: INJ, [id number], Dosing Weight 75.001, kg, Start date: 05/27/15 21:00:00 CDT, Duration: 30 day, Stop date: 06/25/15 21:00:0 0 CDT Notes: (Same as: Diflucan) Do not refrigerate Start Date: 05/27/15 Stop Date: 05/30/15 Status: Discontinued gabapentin 800 mg oral tablet 800 mg, 2 cap, Route: PO, Drug form: CAP, TID, Dosing Weight 75.001, kg, Start d ate: 05/27/15 23:01:00 CDT, Duration: 30 day, Stop date: 06/26/15 21:00:00 CDT Notes: (Same as: Neurontin) Start Date: 05/27/15 Stop Date: 05/30/15 Status: Discontinued gabapentin 800 mg oral tablet 800 mg=1 tab, PO, TID, # 90 tab, 0 Refill(s) Start Date: 05/27/15 Status: Ordered meloxicam 15 mg oral tablet 15 mg=1 tab, PO, Daily, # 30 tab, 1 Refill(s) Start Date: 05/27/15 Status: Ordered morphine Sulfate 4 mg, 2 mL, Route: IVP, Drug form: INJ, Q4H, Dosing Weight 63.636, kg, PRN Pain Score 7-10, Start date: 05/27/15 17:00:00 CDT, Duration: 30 day, Stop date: 06/16 16:59:00 CDT Notes: (Same as:MORPhine Sulfate) Start Date: 05/27/15 Stop Date: 05/30/15 Status: Discontinued morphine Sulfate 4 mg, 2 mL, Route: IVP, Drug form: INJ, ONCE, Dosing Weight 63.636, kg, Priority : STAT, Start date: 05/27/15 12:54:00 CDT, Stop date: 05/27/15 12:54:00 CDT Notes: (Same as:MORPhine Sulfate) Start Date: 05/27/15 Stop Date: 05/27/15 Status: Completed morphine Sulfate 4 mg, 2 mL, Route: IVP, Drug form: INJ, ONCE, Dosing Weight 63.636, kg, Priority : STAT, Start date: 05/27/15 9:38:00 CDT, Stop date: 05/27/15 9:38:00 CDT Notes: (Same as:MORPhine Sulfate) Start Date: 05/27/15 Stop Date: 05/27/15 Status: Completed nystatin topical 100,000 units/g powder 1 appl, Route: TOP, BID, Drug form: PWDR, Start date: 05/29/15 17:00:00 CDT, Dur ation: 30 day, Stop date: 06/28/15 9:00:00 CDT Notes: (Same as:Mycostatin, Nilstat) For external use only. Start Date: 05/29/15 Stop Date: 05/30/15 Status: Discontinued nystatin-triamcinolone topical cream 1 appl, TOP, BID, # 30 gm, 0 Refill(s) Start Date: 05/27/15 Stop Date: 06/10/15 Status: Ordered ondansetron 4 mg, 2 mL, Route: IVP, Drug form: INJ, Q6H, Dosing Weight 75.001, kg, PRN Nause a & Vomiting, Start date: 05/27/15 17:00:00 CDT, Duration: 30 day, Stop date: 06/26/15 16:59:00 CDT Notes: (Same as: Savanah) MEDICATION WASTE Product Size: 4 mgProduct Was aristeo: ___ mg Start Date: 05/27/15 Stop Date: 05/30/15 Status: Discontinued Saline Flush 0.9% 10 mL, Route: IVP, Drug Form: INJ, Dosing Weight 63.636, kg, PRN, PRN Line Flush , Start date: 05/27/15 9:38:00 CDT, Duration: 30 day, Stop date: 06/26/15 9:37:0 0 CDT Notes: Same as: BD Posiflush Sterile Start Date: 05/27/15 Stop Date: 05/28/15 Status: Discontinued Sodium Chloride 0.9% (Bolus) IV 1,000 mL, 1000 ml/hr, Infuse Over: 1 hr, Route: IV, 1,000, Drug form: INJ, ONCE, Priority: STAT, Dosing Weight 63.636 kg, Start date: 05/27/15 9:38:00 CDT, Dura tion: 1 doses or times, Stop date: 05/27/15 9:38:00 CDT Start Date: 05/27/15 Stop Date: 05/27/15 Status: Completed Sodium Chloride 0.9% IV 1,000 mL 1,000 mL, Rate: 75 ml/hr, Infuse over: 13.3 hr, Route: IV, Dosing Weight 75.001 kg, Total Volume: 1,000, Start date: 05/27/15 17:00:00 CDT, Duration: 30 day, St op date: 06/26/15 16:59:00 CDT Start Date: 05/27/15 Stop Date: 05/30/15 Status: Discontinued temazepam 30 mg, 2 cap, Route: PO, Drug form: CAP, Bedtime, Dosing Weight 75.001, kg, PRN Sleep, Start date: 05/27/15 18:17:00 CDT, Duration: 30 day, Stop date: 06/26/15 18:16:00 CDT Notes: (Same As: Restoril) Start Date: 05/27/15 Stop Date: 05/30/15 Status: Discontinued temazepam 30 mg oral capsule 30 mg=1 cap, PO, Bedtime, PRN Sleep, # 14 cap, 0 Refill(s) Start Date: 05/27/15 Stop Date: 06/10/15 Status: Ordered Tylenol with Codeine #3 oral tablet 1 tab, PO, Q6H, X 14 day, # 30 tab, 0 Refill(s), called to pharmacy Start Date: 05/30/15 Stop Date: 06/13/15 Status: Ordered Zofran 4 mg, 2 mL, Route: IVP, Drug form: INJ, ONCE, Dosing Weight 63.636, kg, Priority : STAT, Start date: 05/27/15 9:38:00 CDT, Stop date: 05/27/15 9:38:00 CDT Notes: (Same as: Savanah) MEDICATION WASTE Product Size: 4 mgProduct Was aristeo: ___ mg Start Date: 05/27/15 Stop Date: 05/27/15 Status: Completed Results ELECTROLYTES 1 2 3 Most recent to oldest [Reference Range]: 139 mEq/L (05/29/15 4:27 AM) 139 mEq/L (05/28/15 4:54 AM) 137 mEq/L (05/27/15 9:50 AM) Sodium Lvl [135-145 mEq/L] 4.0 mEq/L (05/29/15 4:27 AM) 3.8 mEq/L (05/28/15 4:54 AM) 3.6 mEq/L (05/27/15 9:50 AM) Potassium Lvl [3.5-5.1 mEq/L] 106 mEq/L (05/29/15 4:27 AM) 107 mEq/L (05/28/15 4:54 AM) 104 mEq/L (05/27/15 9:50 AM) Chloride Lvl [95-109 mEq/L] 26 mEq/L (05/29/15 4:27 AM) 26 mEq/L (05/28/15 4:54 AM) 23 mEq/L *LOW* (05/27/15 9:50 AM) CO2 [24-32 mEq/L] 11.0 mEq/L (05/29/15 4:27 AM) 9.8 mEq/L *LOW* (05/28/15 4:54 AM) 13.6 mEq/L (05/27/15 9:50 AM) AGAP [10.0-20.0 mEq/L] CHEM PANEL 1 2 3 Most recent to oldest [Reference Range]: 1.20 mg/dL (05/29/15 4:27 AM) 1.45 mg/dL *HI* (05/28/15 4:54 AM) 2.00 mg/dL *HI* (05/27/15 9:50 AM) Creatinine Lvl [0.50-1.40 mg/dL] 69 mL/min/1.73m2 1 *NA* (05/29/15 4:27 AM) 55 mL/min/1.73m2 2 *NA* (05/28/15 4:54 AM) 37 mL/min/1.73m2 3 *NA* (05/27/15 9:50 AM) eGFR 16 mg/dL (05/29/15 4:27 AM) 22 mg/dL (05/28/15 4:54 AM) 27 mg/dL *HI* (05/27/15 9:50 AM) BUN [7-22 mg/dL] 14 (05/27/15 9:50 AM) B/C Ratio [6-25] 110 mg/dL *HI* (05/29/15 4:27 AM) 92 mg/dL (05/28/15 4:54 AM) 117 mg/dL *HI* (05/27/15 9:50 AM) Glucose Lvl [70-99 mg/dL] 7.4 g/dL (05/27/15 9:50 AM) Total Protein [6.4-8.4 g/dL] 3.8 g/dL (05/27/15 9:50 AM) Albumin Lvl [3.5-5.0 g/dL] 3.6 g/dL (05/27/15 9:50 AM) Globulin [2.0-4.0 g/dL] 1.1 (05/27/15 9:50 AM) A/G Ratio [0.7-1.6] 8.9 mg/dL (05/29/15 4:27 AM) 8.1 mg/dL *LOW* (05/28/15 4:54 AM) 9.3 mg/dL (05/27/15 9:50 AM) Calcium Lvl [8.5-10.5 mg/dL] 17 unit/L (05/27/15 9:50 AM) ALT [0-65 unit/L] 10 unit/L (05/27/15 9:50 AM) AST [0-37 unit/L] 46 unit/L (05/27/15 9:50 AM) Alk Phos [39-136 unit/L] 0.3 mg/dL (05/27/15 9:50 AM) Bili Total [0.2-1.3 mg/dL] 1Result Comment: The eGFR is calculated using the [...] from the National Kid[employer] Disease Education Program ( NKDEP) which additionally recommends that when the eGFR is used in patients with extremes of body mass index for purposes of drug dosing, the eGFR should be mul tiplied by the estimated BMI. 2Result Comment: The eGFR is calculated using the [...] from the National Kidney Disease Education Program ( NKDEP) which additionally recommends that when the eGFR is used in patients with extremes of body mass index for purposes of drug dosing, the eGFR should be mul tiplied by the estimated BMI. 3Result Comment: The eGFR is calculated using the [...] from the National Kidney Disease Education Program ( NKDEP) which additionally recommends that when the eGFR is used in patients with extremes of body mass index for purposes of drug dosing, the eGFR should be mul tiplied by the estimated BMI. SPECIAL CHEMISTRY 1 2 3 Most recent to oldest [Reference Range]: < 0.01 ng/mL (05/29/15 4:27 AM) PSA [0.00-4.00 ng/mL] URINE AND STOOL 1 2 3 Most recent to oldest [Reference Range]: Clear (05/28/15 10:50 AM) UA Turbidity [Clear] Ltyellow *NA* (05/28/15 10:50 AM) UA Color 6.0 (05/28/15 10:50 AM) UA pH [5.0-8.0] 1.015 (05/28/15 10:50 AM) UA Spec Grav [<=1.030] Negative mg/dL *NA* (05/28/15 10:50 AM) UA Glucose [Negative mg/dL] Negative (05/28/15 10:50 AM) UA Blood [Negative] Negative mg/dL *NA* (05/28/15 10:50 AM) UA Ketones [Negative mg/dL] Negative mg/dL (05/28/15 10:50 AM) UA Protein [Negative mg/dL] <=1.0 mg/dL *NA* (05/28/15 10:50 AM) UA Urobilinogen [0.1-1.0 mg/dL] Negative *NA* (05/28/15 10:50 AM) UA Bili [Negative] Negative (05/28/15 10:50 AM) UA Leuk Est [Negative] Negative (05/28/15 10:50 AM) UA Nitrite [Negative] 1 /HPF (05/28/15 10:50 AM) UA WBC [0-5 /HPF] 1 /HPF (05/28/15 10:50 AM) UA RBC [0-2 /HPF] None Seen *NA* (05/28/15 10:50 AM) UA Sq Epi Few /LPF *NA* (05/28/15 10:50 AM) UA Mucus [None Seen /LPF] IMMUNOLOGY 1 2 3 Most recent to oldest [Reference Range]: 14.2 mg/dL *LOW* (05/30/15 6:25 AM) Prealbumin [18.0-45.0 mg/dL] HEMATOLOGY 1 2 3 Most recent to oldest [Reference Range]: 5.2 K/CMM (05/29/15 4:27 AM) 5.9 K/CMM (05/28/15 4:54 AM) 8.5 K/CMM (05/27/15 9:50 AM) WBC [3.7-10.4 K/CMM] 3.56 M/CMM *LOW* (05/29/15 4:27 AM) 3.60 M/CMM *LOW* (05/28/15 4:54 AM) 4.02 M/CMM *LOW* (05/27/15 9:50 AM) RBC [4.70-6.10 M/CMM] 10.8 g/dL *LOW* (05/29/15 4:27 AM) 10.9 g/dL *LOW* (05/28/15 4:54 AM) 12.2 g/dL *LOW* (05/27/15 9:50 AM) Hgb [14.0-18.0 g/dL] 32.2 % *LOW* (05/29/15 4:27 AM) 32.7 % *LOW* (05/28/15 4:54 AM) 37.0 % *LOW* (05/27/15 9:50 AM) Hct [42.0-54.0 %] 90.3 fL (05/29/15 4:27 AM) 90.8 fL (05/28/15 4:54 AM) 91.9 fL (05/27/15 9:50 AM) MCV [80.0-94.0 fL] 30.3 pg (05/29/15 4:27 AM) 30.1 pg (05/28/15 4:54 AM) 30.4 pg (05/27/15 9:50 AM) MCH [27.0-31.0 pg] 33.6 g/dL (05/29/15 4:27 AM) 33.2 g/dL (05/28/15 4:54 AM) 33.1 g/dL (05/27/15 9:50 AM) MCHC [32.0-36.0 g/dL] 12.6 % (05/29/15 4:27 AM) 12.8 % (05/28/15 4:54 AM) 12.9 % (05/27/15 9:50 AM) RDW [11.5-14.5 %] 216 K/CMM (05/29/15 4:27 AM) 209 K/CMM (05/28/15 4:54 AM) 211 K/CMM (05/27/15 9:50 AM) Platelet [133-450 K/CMM] 9.0 fL (05/29/15 4:27 AM) 9.0 fL (05/28/15 4:54 AM) 9.0 fL (05/27/15 9:50 AM) MPV [7.4-10.4 fL] 52.1 % (05/29/15 4:27 AM) 54.3 % (05/28/15 4:54 AM) 75.7 % *HI* (05/27/15 9:50 AM) Segs [45.0-75.0 %] 29.9 % (05/29/15 4:27 AM) 28.0 % (05/28/15 4:54 AM) 11.0 % *LOW* (05/27/15 9:50 AM) Lymphocytes [20.0-40.0 %] 13.6 % *HI* (05/29/15 4:27 AM) 14.2 % *HI* (05/28/15 4:54 AM) 11.6 % (05/27/15 9:50 AM) Monocytes [2.0-12.0 %] 3.2 % (05/29/15 4:27 AM) 2.4 % (05/28/15 4:54 AM) 0.8 % (05/27/15 9:50 AM) Eosinophils [0.0-4.0 %] 1.2 % *HI* (05/29/15 4:27 AM) 1.1 % *HI* (05/28/15 4:54 AM) 0.9 % (05/27/15 9:50 AM) Basophils [0.0-1.0 %] 2.7 K/CMM (05/29/15 4:27 AM) 3.2 K/CMM (05/28/15 4:54 AM) 6.5 K/CMM (05/27/15 9:50 AM) Segs-Bands # [1.5-8.1 K/CMM] 1.6 K/CMM (05/29/15 4:27 AM) 1.6 K/CMM (05/28/15 4:54 AM) 0.9 K/CMM *LOW* (05/27/15 9:50 AM) Lymphocytes # [1.0-5.5 K/CMM] 0.7 K/CMM (05/29/15 4:27 AM) 0.8 K/CMM (05/28/15 4:54 AM) 1.0 K/CMM *HI* (05/27/15 9:50 AM) Monocytes # [0.0-0.8 K/CMM] 0.2 K/CMM (05/29/15 4:27 AM) 0.1 K/CMM (05/28/15 4:54 AM) 0.1 K/CMM (05/27/15 9:50 AM) Eosinophils # [0.0-0.5 K/CMM] 0.1 K/CMM (05/29/15 4:27 AM) 0.1 K/CMM (05/28/15 4:54 AM) 0.1 K/CMM (05/27/15 9:50 AM) Basophils # [0.0-0.2 K/CMM] Immunizations No data available for this section [...] Smoking Cessation Counseling No Assessment and Plan Extracted from: Title: Clinical Document Author: Carlos Nuñez MD Date: 05/30/15 Wound Care Progress Note Carlos Nuñez MD, PA Subjective: Patient seen, examined and events noted. Objective: Vitals and Temp: VitalsTmp(F)[id number] 05/29 12:[id number]--- 05/29 08:[id number]--- 05/29 04:0098.879208/7518------ 05/29 00:[id number]/6420------ 05/28 20:[id number]--- 24 Hr Tmax: 98.6F (37.00c) at 05/29 04:00Vital Signs are the last 5 in the past 48 hours. (no lab data in past 24 hours) Diagnostics: PHYSICAL EXAMINATION Chest: Clear, no rhonchi Heart: S1, S2, regular rhythm. [employer] MA[employer]GER: Wounds: Location: right groin wound Size: decreasded Base wound: * (X) harris as present (_x) Granulation (_) Yellow (_) Slough (_) Black eschar (_) Odor (_) Maceration Drainage (_) None (_x) Scant (_) Small (_) Moderate (_) Heavy Appearance of drainage: (_x) Serous (_) Serosanguinous (_) Green (_) Yellow (_) Seropurulent (_) Purulent (_) Bloody Medications (11) Active Scheduled: (4) clindamycin-D5W 600mg/50ml premix INJ 600 mg 50 mL, IV, ABXQ8H fluconazole (2mg/ml) NS premix INJ 200 mg 100 mL, IVPB, [id number] gabapentin 400 mg CAP 800 mg 2 cap, PO, TID nystatin [id number] unit/gm 15 gm PWD 1 appl, TOP, BID Continuous: (1) sodium chloride 0.9% 1000 ml INJ 1,000 mL 1,000 mL, IV, 75 ml/hr PRN: (6) acetaminophen 325 mg TABLET 650 mg 2 tab, PO, Q4H acetaminophen-hydrocodone 325mg-5mg tab 1 tab, PO, Q6H docusate sodium 100 mg CAP 100 mg 1 cap, PO, BID MORPhine sulfate PF 2 mg/ml CARP 4 mg 2 mL, IVP, Q4H ondansetron 4mg/2mL INJ SYRINGE 4 mg 2 mL, IVP, Q6H temazepam 15 mg CAP 30 mg 2 cap, PO, Bedtime ASSESSMENT AND PLAN: right groins cutaneous candidiasis is improving Continue current treatment. Follow up for monitoring infection and wound progress.
[2017-12-17] MEDS ORDERED: ACETAMINOPHEN 325 MG TAB PO ONE (23:30)
--- NOTE | 2017-12-18 00:35 | Diagnostic Imaging Report ---
EXAM: CHEST 2 VIEWS, PA and lateral INDICATION: Cough for 5 days COMPARISON: PA and lateral view of the chest June 30, 2016 FINDINGS: LINES/TUBES: None LUNGS: No consolidations or edema. PLEURA: No effusions or pneumothorax. HEART AND MEDIASTINUM: Normal size and contour. BONES AND SOFT TISSUES: No acute findings. Stable median sternotomy wires. IMPRESSION: No evidence of pneumonia. Signed by: Dr. Ute Conde M.D. on 12/18/2017 12:31 AM
[2017-12-18] MEDS ORDERED: AUGMENTIN 875-1 EACH PO (01:08)
[2017-12-18] MEDS ORDERED: SODIUM CHLORIDE 0.9% 1000ML 1,000 ML IV STA (02:15)
[2017-12-18] MEDS ORDERED: SODIUM CHLORIDE 0.9% 1000ML 1,000 ML ONE (02:19)
[2017-12-18 03:22] VITALS: BP 163/90
== END 2017-12-18 03:37 | disposition home or self-care (01) ==
LOC: ER 23:14
DX: R05 Cough (principal); J01.00 Acute maxillary sinusitis, unspecified; J01.10 Acute frontal sinusitis, unspecified
CPT/HCPCS: 71046; 99283; J7030

== ENCOUNTER → 2018-01-21 | Outpatient (CLI) | payer OTHER ==
[~2018-01-21] MED LIST changes: +AUGMENTIN 875-1 EACH PO
--- NOTE | 2018-01-21 14:00 | Diagnostic Imaging Report ---
EXAMINATION: CHEST 2 VIEWS INDICATION: Acute bronchitis. COMPARISON: 12/17/2017 FINDINGS: LINES/TUBES: None LUNGS: Mild perihilar peribronchial hazy opacity could be due to bronchitis. No consolidations or edema. PLEURA: No effusions or pneumothorax. HEART AND MEDIASTINUM: Normal size and contour. BONES AND SOFT TISSUES: No acute findings. Stable median sternotomy wires. IMPRESSION: Mild perihilar peribronchial hazy opacity could be due to bronchitis. Signed by: Dr. Elmo Solorzano M.D. on 01/21/2018 1:57 PM
== END ==
LOC: RAD 13:10
PROVIDERS: ATTEND Emergency Medicine
DX: J20.9 Acute bronchitis, unspecified (principal)
CPT/HCPCS: 71046

== ENCOUNTER → 2018-11-10 | Outpatient (CLI) | payer OTHER ==
--- NOTE | 2018-11-10 15:36 | Diagnostic Imaging Report ---
Exam: Lumbar spine MRI without IV contrast History: Back pain Comparison studies: None Technique: Sagittal and axial T2 , sagittal T1 and IR, axial spin density oblique and coronal T2. Intravenous contrast: None Findings: Transitional lumbosacral anatomy. For the purposes of this dictation the S1 vertebral body is partially lumbarized with room entry disc. Alignment: Focal lumbar ptosis centered at L2-L3 and convex right lumbar curvature with apex at L3-L4. Mild right lateral translation of L4 on L5. Soft tissues: No T2 hyperintense inflammatory changes. Paraspinal muscles: No signal abnormalities. Well-preserved. No atrophic changes Lower thoracic cord: Normal in signal and morphology. The tip of the conus is at L1. Cauda equina: No masses. No arachnoiditis. Vertebrae: No acute compression fracture. No infection or neoplasm. Chronic wedge compression deformities with vertebral body height loss asymmetrically on the left L3 and L4 which result and convex right lumbar curvature and severe disc degeneration on the left along the concavity lumbar curvature. Degenerative changes: L1-L2: Moderately degenerated disc with loss of disc height loss of T2 disc signal. Disc osteophyte complex with small freely migrated central disc extrusion result in mild canal stenosis. No significant foraminal stenosis. L2-L3: Severely degenerated disc on the left along the concavity of lumbar curvature with advanced degenerative endplate changes and mild endplate edema. Asymmetric left disc osteophyte complex and facet arthrosis with mild canal and bilateral foraminal stenosis. L3-L4: Severely degenerated disc on the left along the concavity lumbar curvature with advanced degenerative endplate changes and mild endplate edema. Asymmetric left disc osteophyte complex, thickened ligamentum flavum and facet arthrosis with mild canal stenosis, mild right foraminal stenosis and severe left foraminal stenosis with impingement on the left L3 nerve root. L4-L5: Mildly degenerated disc with loss of disc height loss of T2 disc signal. Minimal retrolisthesis of L4 and L5 with associated uncovered disc/disc osteophyte complex, thickened ligamentum flavum and bilateral facet arthrosis with moderate to severe canal stenosis, severe bilateral foraminal stenosis with impingement on the L4 nerve roots and narrowing of the bilateral subarticular recesses. L5-S1: Moderately degenerated disc asymmetrically on the right with reactive degenerative endplate changes and mild endplate edema. Asymmetric right disc bulge with annular fissure, thickened ligamentum flavum and facet arthrosis with mild canal stenosis and mild left and severe right foraminal stenosis with impingement on the right L5 nerve root. Included sacroiliac joints: No marrow edema or joint effusion. Additional findings: A few subcentimeter T2 hyperintense lesions in both kidneys are most likely cysts but are too small to further characterize on this exam. IMPRESSION: 1. Convex right lumbar curvature with chronic vertebral body height loss asymmetrically on the left at L3 and at L4 with associated severely degenerated disks along the concavity lumbar curvature at L2-L3 and at L3-L4. Moderately degenerated L5-S1 disc asymmetrically on the right with annular fissure. 2. Multilevel degenerative canal stenosis, moderate to severe at L4-L5. 3. Multilevel degenerative foraminal stenosis, worse/severe on the left at L3-L4, bilaterally at L4-L5 and on the right at L5-S1. 4. Transitional lumbosacral anatomy as described. Signed by: Dr. Faustino Acosta M.D. on 11/10/2018 3:33 PM
== END ==
LOC: MRI 09:38
PROVIDERS: ATTEND Emergency Medicine
DX: M54.16 Radiculopathy, lumbar region (principal)
CPT/HCPCS: 72148

== ENCOUNTER → 2019-08-31 | Outpatient (CLI) | payer OTHER ==
[~2019-08-31] MED LIST changes: +IOPAMIDOL 370 MG/ML 200 ML INFUS..BTL INJ ONE; +SODIUM CHLORIDE 0.9% 50ML 50 ML ONE
--- NOTE | 2019-08-31 11:17 | Diagnostic Imaging Report ---
EXAM: CT Abdomen and Pelvis WITH intravenous contrast INDICATION: Abdominal pain COMPARISON: None. TECHNIQUE: Abdomen and pelvis were scanned utilizing a multidetector helical scanner from the lung base to the pubic symphysis after administration of IV contrast. Coronal and sagittal reformations were obtained. Routine protocol was performed. Scan was performed during portal venous phase. IV CONTRAST: 100mL of Isovue 370 ORAL CONTRAST: Water RADIATION DOSE: Total DLP: 220 mGy*cm Dose modulation, iterative reconstruction, and/or weight based adjustment of the mA/kV was utilized to reduce the radiation dose to as low as reasonably achievable. FINDINGS: LOWER THORAX: Normal. HEPATOBILIARY: No focal hepatic lesions. No biliary ductal dilatation. The gallbladder appears unremarkable. SPLEEN: No splenomegaly. PANCREAS: No focal masses or ductal dilatation. ADRENALS: No adrenal nodules. KIDNEYS/URETERS: 2 mm left distal ureteral calculus. No associated hydronephrosis or hydroureter. Subcentimeter bilateral renal cysts. PELVIC ORGANS/BLADDER: Unremarkable. PERITONEUM / RETROPERITONEUM: No free air or fluid. LYMPH NODES: No lymphadenopathy. VESSELS: Unremarkable. GI TRACT: No abnormal bowel thickening. No bowel obstruction. Small amount of retained oral contrast material in the colon. BONES AND SOFT TISSUES: No acute osseous injury. No suspicious lytic or blastic lesions. Moderate degenerative changes of the lumbar spine. IMPRESSION: 2 mm left distal ureteral calculus. No associated hydronephrosis or hydroureter. Signed by: aSrah Hicks MD on 08/31/2019 11:14 AM
== END ==
LOC: CT 10:02
PROVIDERS: ATTEND Emergency Medicine
DX: R10.9 Unspecified abdominal pain (principal)
CPT/HCPCS: 74177; Q9967

== ENCOUNTER → 2019-12-02 | Outpatient (CLI) | payer OTHER ==
[~2019-12-02] MED LIST changes: -IOPAMIDOL 370 MG/ML 200 ML INFUS..BTL INJ ONE; -SODIUM CHLORIDE 0.9% 50ML 50 ML ONE
== END ==
LOC: DX 10:06
PROVIDERS: ATTEND Emergency Medicine
DX: M81.0 Age-related osteoporosis without current pathological fracture (principal)
CPT/HCPCS: 77080

== ENCOUNTER → 2020-01-11 | Outpatient (CLI) | payer OTHER | LOC: MRI 10:02 | PROVIDERS: ATTEND Emergency Medicine | DX: M25.562 Pain in left knee (principal) ==

== ENCOUNTER → 2020-05-30 | Outpatient (CLI) | payer OTHER | LOC: MRI 10:05 | PROVIDERS: ATTEND Emergency Medicine | DX: R51.9 Headache, unspecified (principal) | CPT/HCPCS: 70551 ==

== ENCOUNTER → 2021-02-28 | Outpatient (CLI) | payer OTHER | LOC: NM 10:17 | PROVIDERS: ATTEND Emergency Medicine | DX: C64.1 Malignant neoplasm of right kidney, except renal pelvis (principal); Z85.46 Personal history of malignant neoplasm of prostate | CPT/HCPCS: 76770; 78306; A9503 ==

== ENCOUNTER → 2024-08-02 | Outpatient (REF) | payer OTHER | LOC: DX 10:43 | PROVIDERS: ATTEND Emergency Medicine | DX: M85.88 Other specified disorders of bone density and structure, other site (principal) | CPT/HCPCS: 77080 ==